=== PATIENT | male | born 1945 | race Caucasian/White ===

== ENCOUNTER → 2016-04-06 | Outpatient (CLI) | payer MEDICARE ==
--- NOTE | 2016-04-06 10:49 | XR ---
EXAMINATION TYPE: XR chest 2V DATE OF EXAM: 04/06/2016 10:29 AM HISTORY: Abnormal weight loss. REFERENCE: Previous study dated 12/21/2008. FINDINGS: The lungs are clear. Pleural spaces are clear. Heart size is normal. Note is made of rib de formity on the right from no rib fracture. IMPRESSION: NO ACUTE INTRATHORACIC ABNORMALITY.
== END | disposition home or self-care (01) ==
LOC: RADXRMAIN 10:13
PROVIDERS: ATTEND Physician Assistant
DX: R63.4 Abnormal weight loss (principal)
CPT/HCPCS: 71020

== ENCOUNTER → 2016-04-24 | Outpatient (CLI) | payer MEDICARE ==
--- NOTE | 2016-04-24 07:31 | MR ---
EXAMINATION TYPE: MR knee RT wo con DATE OF EXAM: 04/24/2016 6:37 AM COMPARISON: NONE HISTORY: Right knee pain TECHNIQUE: Multiplanar, multisequence imaging of the right knee is performed without IV contrast. FINDINGS: MEDIAL MENISCUS: Anterior and posterior horns are intact without tear. Myxoid degeneration posterior horn medial meniscus. LATERAL MENISCUS: Diminutive anterior horn, posterior horn and body which may reflect prior surgical intervention or a chronic complex tear. CRUCIATE LIGAMENTS: The anterior and posterior cruciate ligaments are intact and unremarkable. COLLATERAL LIGAMENTS: The medial collateral ligament and lateral collateral ligament complex are inta ct and unremarkable. EXTENSOR MECHANISM: Visualized quadriceps and patellar tendons are intact. EFFUSION: Moderate suprapatellar joint effusion. POPLITEAL CYST: Cystic structure is noted adjacent to the femoral insertion of the ACL which measure s 1.8 x 1.0 cm and is felt to reflect a ganglion cyst. No evidence for Rivas's cyst at this time. TRICOMPARTMENT SPACES: Moderate narrowing lateral tibiofemoral joint space as well as patellofemoral joint space with early changes of chondromalacia patella. BONE MARROW SIGNAL: No focal abnormal marrow signal is appreciated. OTHER: No additional significant abnormality is appreciated. IMPRESSION: 1. Prior abdomen discectomy lateral meniscus versus chronic complex tear. 2. Changes of osteoarthritis as discussed. 3. Moderate the suprapatellar joint effusion. 4. Ganglion cyst adjacent to the femoral ACL insertion.
== END ==
LOC: RADMRIMAIN 05:57
PROVIDERS: ATTEND Orthopaedic Surgery
DX: M17.11 Unilateral primary osteoarthritis, right knee (principal); M25.461 Effusion, right knee; M67.461 Ganglion, right knee

== ENCOUNTER 2016-06-04 06:12 | Day surgery (SDC) | payer MEDICARE ==
[2016-06-03 09:32] VITALS: BMI 24.0
--- NOTE | 2016-06-03 16:56 | HP ---
DATE OF ADMISSION: 06/04/2016 Abraham Granger is a 70-year-old patient seen with progressive right knee pain. After having options regarding treatment discussed, he elected to proceed with right knee arthroscopy. Consent was obtained. Medical clearance was provided by Dr. Whitten. Past medical history is hypertension. Past surgical history is right knee arthroscopy. DAILY MEDICATIONS: 1. Amlodipine. 2. Lisinopril. 3. Tylenol. ALLERGIES: NONE. SOCIAL HISTORY: Patient denies current tobacco use. PHYSICAL EVALUATION OF RIGHT KNEE: Range of motion is negative 2/3 to 110 degrees. There is a mild effusion. Tenderness along the medial and lateral joint lines. Positive medial Ignacio's. Positive lateral Ignacio's. Ligaments are stable. Crepitus, medial, lateral and patellofemoral compartments with range of motion. Hip rotation is without pain. Distal neurovascular exam is intact. Radiographs of the right knee revealed osteoarthritic changes. MRI of the right knee revealed meniscal tear, osteoarthritis and joint effusion. IMPRESSION: Internal derangement of right knee with meniscal tear. PLAN: Right knee arthroscopy with partial meniscectomy and debridement.
[~2016-06-04 06:12] MED LIST: DEXAMETHASONE SOD PHOSPHATE 10 MG/ML 1 ML VIAL IV ONE; LACTATED RINGERS 1,000 ML IV SCH; ONDANSETRON 4 MG/2 ML VIAL IVP ONE; ceFAZolin 2 GM in SODIUM CHLORIDE 0.9% 100 ML IVPB ONE
[2016-06-04] MEDS ORDERED: LIDOCAINE 1% 20 ML VIAL (10MG/ML) FOR IV START INTRADERMA ONE (06:45)
[2016-06-04] MEDS ORDERED: ePHEDrine 50 MG/ML 1 ML AMP ONE (07:24)
[2016-06-04] MEDS ORDERED: PROPOFOL 10 MG/ML 20 ML VIAL IV ONE (07:24)
[2016-06-04] MEDS ORDERED: MIDAZOLAM 2 MG/2 ML VIAL ONE (07:24)
[2016-06-04] MEDS ORDERED: fentaNYL (PF) 50 MCG/ML 2 ML AMP ONE (07:24)
[2016-06-04] MEDS ORDERED: SUCCINYLCHOLINE CHLORIDE 100 MG/5 ML SYR IV ONE (07:24)
[2016-06-04] MEDS ORDERED: LIDOCAINE 1% INJ 10MG/ML (20 ML MDV) ONE (07:24)
[2016-06-04] MEDS ORDERED: BUPIVACAIN-EPI 0.25%-1:200,000 30 ML VIAL INTRAARTIC ONE ×2 (07:33→08:11)
[2016-06-04 08:21] VITALS: RESP 16; TEMP 97.2
--- NOTE | 2016-06-04 08:25 | P.OP ---
Date of Procedure: 06/04/16 Preoperative Diagnosis: Internal derangement right knee Postoperative Diagnosis: 1. Tear medial and lateral meniscus right knee 2. 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 Reactive synovitis medial, lateral and suprapatellar compartments right knee 4. 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 Arthroscopic partial medial and lateral meniscectomy right knee 2. Arthroscopic chondroplasty patella right knee 3. Arthroscopic partial synovectomy medial, lateral and suprapatellar compartments right knee Anesthesia: LANCEA, local Surgeon: Tip Ulrich Estimated Blood Loss (ml): 10 Pathology: none sent Condition: stable Disposition: PACU Indications for Procedure: 70-year-old patient seen with progressive right knee pain. After having treatment options discussed, he elected to proceed with right knee arthroscopy. Operative Findings: See description of procedure Description of Procedure: Patient was taken to the operative suite. Patient underwent a general anesthetic by the department of anesthesia. Patient was given preoperative antibiotics. The right lower extremity was placed in a well-padded arthroscopic leg stewart. The right leg was prepped and draped in the normal sterile orthopedic fashion. A lateral parapatellar and suprapatellar incision was made. Trochars were inserted. Arthroscopy was initiated. Suprapatellar pouch revealed thick reactive synovitis. The patellofemoral joint appeared to articulate congruently. There was grade 2/3 chondromalacia with some osteochondral tears present. The scope was guided into the medial gutter. No loose bodies or plica were identified. The scope was then guided into the medial compartment. A medial parapatellar incision was made. Trocar inserted followed by probe. There was a radial tear involving the posterior horn of the medial meniscus. There were grade 1 chondromalacia changes of the femoral condyle and grade 1-2 chondromalacia changes of the tibial plateau. Thick reactive synovitis anteriorly. Partial medial meniscectomy was performed down to stable tissue. I performed a partial synovectomy. The residual meniscus was probed and found to be stable. Scope and probe were then guided into the intercondylar notch. Cruciates were identified, probed and found to be stable. The scope and probe were then guided into lateral compartment. There was a complex tear involving the anterior mid body and posterior horns of the lateral meniscus. There was reactive synovitis anteriorly. There was an area of grade 4 chondromalacia lateral femoral condyle and tibial plateau with having exposed bone and [id number] contact. A partial lateral meniscectomy was performed down to stable tissue. I performed a partial synovectomy. The scope was in guided back into the suprapatellar compartment. A motorize shaver was introduced into the suprapatellar compartment. I debrided some piecemeal fragments of meniscus. I performed a chondroplasty the patella. I performed a partial synovectomy. The shaver was removed. I took one more look around the entire knee, no residual debris. Instruments were now removed from the joint. The joint was infiltrated with .25% Marcaine. Steri-Strips were applied to the portal sites. Sterile dressings were applied. The patient was placed into a AYAN hose. No tourniquet was utilized. The patient was awakened, transferred to a bed and taken to recovery stable satisfactory condition.
[2016-06-04] MEDS: HYDROmorphone 1 MG/ML 1 ML SYRINGE IVP PRN ×2 (08:28→08:36)
[2016-06-04 09:39] VITALS: BP 123/70; PULSE 71
== END 2016-06-04 10:11 | disposition home or self-care (01) ==
LOC: OR 06:12
PROVIDERS: ATTEND Orthopaedic Surgery
DX: S83.281A Other tear of lateral meniscus, current injury, right knee, initial encounter (principal); S83.241A Other tear of medial meniscus, current injury, right knee, initial encounter; M65.9 Synovitis and tenosynovitis, unspecified; M22.41 Chondromalacia patellae, right knee; N40.0 Benign prostatic hyperplasia without lower urinary tract symptoms; Z79.82 Long term (current) use of aspirin; I10 Essential (primary) hypertension; Z79.899 Other long term (current) drug therapy; X58.XXXA Exposure to other specified factors, initial encounter
CPT/HCPCS: 29880; J2250; J1100; J0690; J2405; J2001; J3010; J1170; J0330; J2704

== ENCOUNTER 2016-09-23 05:46 | Emergency (ER) | payer MEDICARE ==
--- NOTE | 2016-09-23 07:26 | ED ---
General Adult HPI - General Chief complaint: Fall Stated complaint: hip pain/injury Time Seen by Provider: 09/23/16 07:00 Source: patient, RN notes reviewed Mode of arrival: wheelchair Limitations: no limitations - History of Present Illness Initial comments: This is a 70-year-old male who presents emergency Department complaining of right hip and left sided rib pain. Patient states his friend fell off a ladder on top of him. Patient states initially he felt okay but this morning he woke up and he was having right hip and left rib pain. Patient denies any headache though he did state he bumped his head a little but he does not have a headache he has no numbness or weakness. Patient denies any neck pain. Patient denies any anterior chest pain or difficulty breathing or shortness of breath. Patient denies any mid back pain or lower back pain. Patient is able to move his upper shoulders with full range motion as well as his lower extremity but it does elicit some right hip pain. Patient denies any sites of bleeding. Patient denies ever losing consciousness. - Related Data Home Medications Medication Instructions Recorded Confirmed Glucosam/Juanpablo-Msm1/C/Asher/Bosw 1 tab PO DAILY 06/03/16 09/23/16 [Glucosamine-Chondroitin Tablet] Lisinopril [Zestril] 10 mg PO QAM 06/03/16 09/23/16 Multivitamin [Men's Multi-Vitamin] 1 tab PO DAILY 06/03/16 09/23/16 Tamsulosin HCl [Flomax] 0.8 mg PO HS 06/03/16 09/23/16 amLODIPine BESYLATE [Norvasc] 5 mg PO QAM 06/03/16 09/23/16 Folic Acid 1 mg PO DAILY 09/23/16 09/23/16 Methotrexate Sodium [Methotrexate] 12.5 mg PO MO 09/23/16 09/23/16 Allergies Allergy/AdvReac Type Severity Reaction Status Date / Time No Known Allergies Allergy Verified 09/23/16 07:39 Review of Systems ROS Statement: Those systems with pertinent positive or pertinent negative responses have been documented in the HPI. ROS Other: All systems not noted in ROS Statement are negative. Past Medical History Past Medical History: Hypertension History of Any Multi-Drug Resistant Organisms: None Reported Past Surgical History: Orthopedic Surgery, Tonsillectomy Additional Past Surgical History / Comment(s): rt knee procedure Past Anesthesia/Blood Transfusion Reactions: No Reported Reaction Past Psychological History: No Psychological Hx Reported Smoking Status: Former smoker Past Alcohol Use History: None Reported Past Drug Use History: None Reported - Past Family History Father Family Medical History: CVA/TIA, Diabetes Mellitus Mother Family Medical History: No Reported History General Exam - General Exam Comments Initial Comments: GENERAL: Patient is well-developed and well-nourished. Patient is nontoxic and well- hydrated and is in mild distress. ENT: Neck is soft and supple. No significant lymphadenopathy is noted. Oropharynx is clear. Moist mucous membranes. Neck has full range of motion without eliciting any pain. EYES: The sclera were anicteric and conjunctiva were pink and moist. Extraocular movements were intact and pupils were equal round and reactive to light. Eyelids were unremarkable. PULMONARY: Unlabored respirations. Good breath sounds bilaterally. No audible rales rhonchi or wheezing was noted. CARDIOVASCULAR: There is a regular rate and rhythm without any murmurs gallops or rubs. Patient 's left ribs were mildly tender to palpation ABDOMEN: Soft and nontender with normal bowel sounds. No palpable organomegaly was noted. There is no palpable pulsatile mass. SKIN: Skin is clear with no lesions or rashes and otherwise unremarkable. NEUROLOGIC: Patient is alert and oriented x3. Cranial nerves II through XII are grossly intact. Motor and sensory are also intact. Normal speech, volume and content. Symmetrical smile. MUSCULOSKELETAL: Patient has some tenderness to palpation in the right lateral hip. Patient does have full range of motion but it does elicit pain. LYMPHATICS: No significant lymphadenopathy is noted PSYCHIATRIC: Normal psychiatric evaluation. Normal interpersonal interactions appears functionally intact in deals appropriately with others. No signs of depression. No signs of anxiety. Limitations: no limitations Course Vital Signs 09/23/16 09/23/16 05:55 07:16 Temperature 97.7 F Pulse Rate 84 78 Respiratory 18 16 Rate Blood Pressure 116/72 122/78 O2 Sat by Pulse 96 96 Oximetry Disposition Clinical Impression: Fall, Rib contusion, Contusion, hip Disposition: HOME SELF-CARE Condition: Good Instructions: Fall Prevention for Older Adults (ED), Contusion in Adults (ED) Referrals: Camilo Whitten MD [Primary Care Provider] - 1-2 days Time of Disposition: 08:47
--- NOTE | 2016-09-23 07:30 | XR ---
EXAM: XR Right Hip With Pelvis When Performed, 2 or 3 Views. CLINICAL HISTORY: Reason: Pain TECHNIQUE: Two or three views of the right hip, with pelvis when performed. COMPARISON: No relevant prior studies available. FINDINGS: Bones: Unremarkable. No acute fracture. Joints: Unremarkable. No dislocation. Soft tissues: Unremarkable. IMPRESSION: Normal right hip.
--- NOTE | 2016-09-23 07:33 | XR ---
EXAMINATION TYPE: XR ribs LT w pa chest xray DATE OF EXAM: 09/23/2016 COMPARISON: NONE HISTORY: Chest pain. TECHNIQUE: Frontal chest radiograph and multiple views of the left ribs were obtained. FINDINGS: There is no evidence for focal consolidation, pleural effusion, or pneumothorax. No displac ed rib fracture is seen. Osseous structures appear intact. Cardia mediastinal silhouette is within no rmal limits. Osseous structures are intact. Mild degenerative changes of the acromioclavicular joints are noted. IMPRESSION: 1. No acute cardiopulmonary process. 2. No displaced rib fracture.
--- NOTE | 2016-09-23 07:55 | XR ---
EXAMINATION TYPE: XR pelvis AP view DATE OF EXAM: 09/23/2016 COMPARISON: NONE HISTORY: Patient was injured yesterday when a ladder fell on him. TECHNIQUE: Single AP view of the pelvis was obtained. FINDINGS: Degenerative changes are appreciated of the lumbosacral spine at L5-S1 as well as the sacro iliac joints. There is no evidence of fracture or dislocation. There is a normal bowel gas pattern is visualized. No abnormal calcifications are seen within the pelvis. IMPRESSION: No evidence of fracture or dislocation. Degenerative changes of the lumbosacral junction and SI joints.
[2016-09-23 08:56] VITALS: BP 108/60; PULSE 75; RESP 18; TEMP 97.5
== END 2016-09-23 08:54 | disposition home or self-care (01) ==
LOC: EC 05:46
DX: S70.01XA Contusion of right hip, initial encounter (principal); S20.212A Contusion of left front wall of thorax, initial encounter; I10 Essential (primary) hypertension; Z87.891 Personal history of nicotine dependence; Z79.899 Other long term (current) drug therapy; W50.0XXA Accidental hit or strike by another person, initial encounter
CPT/HCPCS: 72170; 73502; 99283

== ENCOUNTER 2018-04-25 03:12 | Emergency (ER) | payer MEDICARE ==
[2018-04-25 04:15] LABS: RBC,Urine >182 /hpf (0-5); WBC,Urine >182 /hpf (0-5)
[2018-04-25 04:24] LABS: Appearance,Urine Bloody (Clear); Color,Urine Dark Red
[2018-04-25] MEDS ORDERED: CEPHALEXIN 500MG STARTER PACK 4 CAP BTL PO STA (04:38)
--- NOTE | 2018-04-25 04:39 | ED ---
Male Urogenital HPI - General Chief complaint: Urogenital Stated complaint: Hematuria Post Self Cath Time Seen by Provider: 04/25/18 03:23 Source: patient Mode of arrival: ambulatory Limitations: no limitations - History of Present Illness Initial comments: Abraham is a pleasant 72-year-old gentleman who presents the emergency department today for evaluation of hematuria and dysuria. She reports he has had difficulty in urinating for a long period of time he has seen urology in the past. He reports that in late February he began having difficulty urinating. He did make a appointment to see his primary care physician at the [facility] on March 24 however due to weather he was unable to follow up until April 22. Patient reports that on April 22 he was seen by his primary care, his bladder scan revealed greater than 1 L of urine in the bladder and they advised him to begin straight cathing. Patient reports history And approximately every 4 hours. He reports that for the first day after he initiated straight cathing he was producing approximately 1 L every 4 hours however that has decreased. Patient reports that when he catheterized himself around 2 PM Wednesday afternoon he noted some blood clots and had some discomfort. He reports that when he catheterized himself again this morning he had oanh blood and more discomfort which prompted him to come to the ER for evaluation. Patient denies any associated fevers, chills nausea or vomiting. Patient reports he currently does not have establish follow-up with urology though he has been seen by her local urology group the distant past. - Related Data Home Medications Medication Instructions Recorded Confirmed Glucosam/Juanpablo-Msm1/C/Asher/Bosw 1 tab PO DAILY 06/03/16 09/23/16 [Glucosamine-Chondroitin Tablet] Lisinopril [Zestril] 10 mg PO QAM 06/03/16 09/23/16 Multivitamin [Men's Multi-Vitamin] 1 tab PO DAILY 06/03/16 09/23/16 Tamsulosin HCl [Flomax] 0.8 mg PO HS 06/03/16 09/23/16 amLODIPine BESYLATE [Norvasc] 5 mg PO QAM 06/03/16 09/23/16 Folic Acid 1 mg PO DAILY 09/23/16 09/23/16 Methotrexate Sodium [Methotrexate] 12.5 mg PO MO 09/23/16 09/23/16 Previous Rx's Medication Instructions Recorded Phenazopyridine [Pyridium] 200 mg PO TID #9 tablet 04/25/18 Sulfamethoxazole/Trimethoprim 1 each PO BID 10 Days #20 tablet 04/25/18 [Bactrim DS 800-160 mg] Allergies Allergy/AdvReac Type Severity Reaction Status Date / Time No Known Allergies Allergy Verified 04/25/18 03:20 Review of Systems ROS Statement: Those systems with pertinent positive or pertinent negative responses have been documented in the HPI. ROS Other: All systems not noted in ROS Statement are negative. Past Medical History Past Medical History: Hypertension, Prostate Disorder History of Any Multi-Drug Resistant Organisms: None Reported Past Surgical History: Orthopedic Surgery, Tonsillectomy Additional Past Surgical History / Comment(s): rt knee procedure Past Anesthesia/Blood Transfusion Reactions: No Reported Reaction Past Psychological History: No Psychological Hx Reported Smoking Status: Former smoker Past Alcohol Use History: None Reported Past Drug Use History: None Reported - Past Family History Father Family Medical History: CVA/TIA, Diabetes Mellitus Mother Family Medical History: No Reported History General Exam - General Exam Comments Initial Comments: Physical Exam GENERAL: Patient is well-developed and well-nourished. Patient is nontoxic and well- hydrated and is in no distress. HENT: Normocephalic, Atraumatic. EYES: PERRL, EOMI PULMONARY: Unlabored respirations. No audible rales rhonchi or wheezing was noted. CARDIOVASCULAR: There is a regular rate and rhythm without any murmurs gallops or rubs. ABDOMEN: Soft and nontender with normal bowel sounds. SKIN: Skin is clear with no lesions or rashes and otherwise unremarkable. : Deferred NEUROLOGIC: Patient is alert and oriented x3. Moving all extremities spontaneously MUSCULOSKELETAL: Normal extremities with adequate strength and full range of motion. No lower extremity swelling or edema. No calf tenderness. PSYCHIATRIC: Normal psychiatric evaluation. Limitations: no limitations Limitations: no limitations Course Vital Signs 04/25/18 04/25/18 03:17 04:51 Temperature 98 F 97.8 F Pulse Rate 94 89 Respiratory 16 20 Rate Blood Pressure 134/75 131/71 O2 Sat by Pulse 98 97 Oximetry Medical Decision Making - Medical Decision Making The patient was seen and evaluated history was obtained from patient and at bedside next and patient is been straight cathing himself for approximately 3 days and now is experiencing dysuria, urinary frequency and gross hematuria with straight cathing. Patient reports even after catheterization he has bladder spasm and urge urinate Concern for urinary tract infection Urinalysis was obtained it was grossly bloody but there was greater than 182 red and white blood cells identify suspicion for infection therefore we'll treat with by mouth Bactrim. Encouraged the patient to continue straight catheterization as I do not feel it would be tierney to initiate a Martinez catheter in the setting of a urinary tract infection. Patient agreeable with this. Patient will be referred to urology for outpatient follow-up - Lab Data Lab Results 04/25/18 Range/Units 04:00 Urine Color Dark Red Urine Appearance Bloody (Clear) Urine RBC >182 H (0-5) /hpf Urine WBC >182 H (0-5) /hpf Disposition Clinical Impression: Urinary tract infection, Gross hematuria, Self-catheterizes urinary bladder Disposition: HOME SELF-CARE Condition: Stable Instructions (If sedation given, give patient instructions): Urinary Tract Infection in Men (ED), Catheter-associated Urinary Tract Infection (ED) Prescriptions: Phenazopyridine [Pyridium] 200 mg PO TID #9 tablet Sulfamethoxazole/Trimethoprim [Bactrim DS 800-160 mg] 1 each PO BID 10 Days #20 tablet Is patient prescribed a controlled substance at d/c from ED?: No Referrals: [facility],Clinic [Primary Care Provider] - 1-2 days Pnakaj Thorpe MD [STAFF PHYSICIAN] - 1-2 days
[2018-04-25] MEDS ORDERED: SULFAMETH-TMP DS STARTER PACK 2 TAB BTL PO STA (04:41)
[2018-04-25 04:53] VITALS: BP 131/71; PULSE 89; RESP 20; TEMP 97.8
== END 2018-04-25 04:53 | disposition home or self-care (01) ==
LOC: EC 03:12
DX: N39.0 Urinary tract infection, site not specified (principal); I10 Essential (primary) hypertension; Z87.891 Personal history of nicotine dependence; Z79.899 Other long term (current) drug therapy; Y84.6 Urinary catheterization as the cause of abnormal reaction of the patient, or of later complication, without mention of misadventure at the time of the procedure
CPT/HCPCS: 81001; 87086; 99283

== ENCOUNTER 2019-04-27 08:36 | Day surgery (SDC) | payer MEDICARE, OTHER ==
[2019-04-25 15:53] VITALS: BMI 25.7
[~2019-04-27 08:36] MED LIST changes: -DEXAMETHASONE SOD PHOSPHATE 10 MG/ML 1 ML VIAL IV ONE; +LIDOCAINE 1% (10MG/ML) FOR IV START INTRADERMA PRN; -ONDANSETRON 4 MG/2 ML VIAL IVP ONE; -ceFAZolin 2 GM in SODIUM CHLORIDE 0.9% 100 ML IVPB ONE
[2019-04-27 08:53] VITALS: TEMP 97.8
[2019-04-27] MEDS ORDERED: LIDOCAINE 1% INJ 10MG/ML (20 ML MDV) ONE (09:42)
[2019-04-27] MEDS ORDERED: PROPOFOL 10 MG/ML 20 ML VIAL IV ONE (09:42)
--- NOTE | 2019-04-27 10:18 | P.PCN ---
Date of Procedure: 04/27/19 Description of Procedure: BRIEF HISTORY: Patient is a 73-year-old pleasant male scheduled for an elective colonoscopy as a part of personal history of colon polyps. Denies any change in bowel habits, blood per rectum, abdominal pain or family history of colon cancer. PROCEDURE PERFORMED: Colonoscopy with polypectomy. PREOPERATIVE DIAGNOSIS: Personal history of colon polyps, last colonoscopy 3 years ago. ESTIMATED BLOOD LOSS: Minimal. IV sedation per Anesthesia. PROCEDURE: After informed consent was obtained, the patient, was brought into the endoscopy unit. IV sedation was administered by Anesthesia under continuous monitoring. Digital rectal examination was normal. Initially the Olympus CF-190 flexible video colonoscope was then inserted in the rectum, gradually advanced into the cecum without any difficulty. Careful examination was performed as the scope was gradually being withdrawn. Ileocecal valve and the appendiceal orifice were visualized and appeared normal. Prep was excellent. Mucosa of the cecum, ascending colon, transverse colon, descending colon, sigmoid colon, and rectum appeared normal. Flat 8 mm ascending colon polyp removed with cold snare polypectomy. Flat 4 mm transverse colon polyp removed with cold snare polypectomy. Diminutive 2 mm sigmoid colon polyp removed with cold forcep polypectomy. Multiple small amount diverticula noted throughout the colon and particularly concentrated in the sigmoid. Retroflexion was performed in the rectum and no lesions were seen. The patient tolerated the procedure well. IMPRESSION: 2 flat polyps removed with cold snare polypectomy from the ascending colon and transverse colon. Diminutive sigmoid polyp removed with cold forcep polypectomy. Moderate pandiverticulosis. RECOMMENDATIONS: Findings of this examination were discussed with the patient the son. Okay to resume diet. Okay to resume medications. Await pathology from polypectomies. Would recommend repeat colonoscopy in 5 years for history of colon polyps if patient is medically stable.
[2019-04-27 10:31] VITALS: BP 125/81; PULSE 66; RESP 16
== END 2019-04-27 10:44 | disposition home or self-care (01) ==
LOC: ORWHC2ENDO 08:36
PROVIDERS: ATTEND Internal Medicine
DX: Z79.899 Other long term (current) drug therapy (principal); Z12.11 Encounter for screening for malignant neoplasm of colon; D12.2 Benign neoplasm of ascending colon; K63.5 Polyp of colon; Z86.010 Personal history of colon polyps; K57.30 Diverticulosis of large intestine without perforation or abscess without bleeding; I10 Essential (primary) hypertension; Z87.891 Personal history of nicotine dependence; Z97.2 Presence of dental prosthetic device (complete) (partial)
CPT/HCPCS: 88305; 45380; 45385; J2001; J2704

== ENCOUNTER → 2021-03-21 | Outpatient (CLI) | payer MEDICARE ==
--- NOTE | 2021-03-21 12:26 | CT ---
EXAMINATION TYPE: CT pelvis w con DATE OF EXAM: 03/21/2021 COMPARISON: None HISTORY: 75-year-old male C6 1, prostate CA TECHNIQUE: Contiguous axial scanning of the pelvis following administration of 100 ml Isovue 300 IV c ontrast. Delayed images through the bladder and coronal/sagittal reconstructions performed. CT DLP: 843 mGycm Automated exposure control for dose reduction was used. FINDINGS: No dilated small bowel, free fluid, or free air. Scattered mild to moderate stool. There is left-sided colonic diverticulosis, greatest in the sigmoid colon but no oanh colonic inflam matory change seen. Normal appendix. Mild atherosclerotic calcifications infrarenal abdominal aorta. There is a 1.2 cm upper left internal iliac chain lymph node which is nonspecific, axial image 39. Th is should be reassessed at follow-up. Suspect an additional 1 cm lymph node lower left internal iliac chain, axial image 48. Otherwise, no retroperitoneal lymphadenopathy is seen. There is distorted soft tissue within the prostate bed with multiple surgical clips. This is irregula r extension to the base of the bladder eccentrically towards the left. There is abnormal retraction a nd distortion of the posterior left bladder base here. Abnormal soft tissue measures approximately 5. 5 x 4.1 cm on axial image 57. Portion of the prostate gland lower down and measures 3.8 segment is wi de. Numerous pelvic phleboliths. There is mild bilateral hydronephrosis and mild bilateral hydroureter and marked bladder distention. Trabeculated appearance to the bladder wall. No excreted contrast seen within either ureter on the 4 minute delayed images. Bones: Mild degenerative change at the hips. Mild degenerative changes bilateral SI joints. Moderate degenerative disc disease L5-S1. Facet arthropathy lower lumbar spine. IMPRESSION: 1. DISTORTED SOFT TISSUE MEASURING 5.5 X 4.1 CM ALONG THE SUPERIOR ASPECT OF THE PROSTATE GLAND WITH MULTIPLE SURGICAL CLIPS. THERE IS IRREGULAR EXTENSION TO THE BASE OF THE BLADDER, ASYMMETRICALLY TOWA RDS THE LEFT. ABNORMAL RETRACTION AND DISTORTION OF THE LEFT POSTERIOR BLADDER WALL HERE. CORRELATE W ITH PSA VALUES FOR LOCAL RECURRENCE AND BLADDER WALL INVASION. NOTE THAT NO PRIORS ARE AVAILABLE FOR COMPARISON PURPOSES. CORRELATE WITH PSA VALUES. 2. A COUPLE PROMINENT LYMPH NODES ON THE LEFT ALONG THE INTERNAL ILIAC CHAIN MEASURING 1.2 AND 1.0 CM . THESE ARE NONSPECIFIC. METASTATIC NODES NOT EXCLUDED AT THIS TIME. 3. MILD BILATERAL HYDRONEPHROSIS. NO EXCRETED CONTRAST IS SEEN ON THE 4 MINUTE DELAYED IMAGES. THIS C OULD BE SECONDARY TO BLADDER OUTLET OBSTRUCTION GIVEN THE DEGREE OF BLADDER DISTENTION. SOFT TISSUE O BSTRUCTING AT THE UVJ PARTICULARLY ON THE LEFT IS DIFFICULT TO EXCLUDE. 4. LEFT SIDED COLONIC DIVERTICULOSIS, GREATEST IN THE SIGMOID COLON.
--- NOTE | 2021-03-21 13:44 | NM ---
EXAMINATION TYPE: NM bone scan whole body DATE OF EXAM: 03/21/2021 COMPARISON: NONE HISTORY: Prostate cancer Delayed whole-body scanning was performed following the injection of 22.0 mCi Tc 99m MDP. Images wer e acquired 4.5 hours post injection. FINDINGS: There is focal uptake at the first metacarpophalangeal joint spaces bilaterally. Some index finger me tacarpal phalangeal joint space uptake is present on the left. There is focal uptake at the right lillian rnoclavicular junction. Some mild uptake is about the right knee. Findings are nonspecific but can be related to degenerative changes. Suspicious focal uptake to suggest metastatic disease is not evident. IMPRESSION: 1. No suspicious uptake to suggest metastatic disease. 2. Mild scattered diffuse uptake appears more compatible with degenerative changes discussed above.
== END | disposition home or self-care (01) ==
LOC: RADCTMAIN 08:01
PROVIDERS: ATTEND Urology
DX: C61 Malignant neoplasm of prostate (principal); N13.30 Unspecified hydronephrosis; K57.30 Diverticulosis of large intestine without perforation or abscess without bleeding
CPT/HCPCS: 82565; 84520; 72193; 36415; 78306; A9503; Q9967

== ENCOUNTER → 2021-04-04 | Outpatient (CLI) | payer MEDICARE | END | disposition home or self-care (01) | LOC: LABWHC1 13:56 | PROVIDERS: ATTEND Radiology Radiation Oncology | DX: C61 Malignant neoplasm of prostate (principal) | CPT/HCPCS: 36415; 84153 ==

== ENCOUNTER → 2021-06-05 | Outpatient (CLI) | payer MEDICARE ==
[2021-06-05 14:29] LABS: Basophils # (A) 0.03 X 10*3/uL (0.00-0.10); Basophils % (A) 0.3 %; Eosinophils # (A) 0.21 X 10*3/uL (0.04-0.35); Eosinophils % (A) 2.3 %; HCT 43.9 % (39.6-50.0); HGB 13.8 g/dL (13.0-17.0); Immature Grans, Automated 0.4 %; Lymphocytes # (A) 1.36 X 10*3/uL (0.90-5.00); Lymphocytes % (A) 14.8 %; MCH 30.3 pg (27.0-32.0); MCHC 31.4 g/dL (32.0-37.0); MCV 96.3 fL (80.0-97.0); Mean Platelet Volume 9.5 fL (9.5-12.2); Monocytes # (A) 0.96 X 10*3/uL (0.20-1.00); Monocytes % (A) 10.5 %; NRBC Per 100 WBC 0 /100 WBCS (0.0-0.0); Neutrophils # (A) 6.58 X 10*3/uL (1.80-7.70); Neutrophils % (A) 71.7 %; Platelet Count 202 X 10*3/uL (140-440); RBC 4.56 X 10*6/uL (4.40-5.60); RDW 13.3 % (11.5-14.5); WBC 9.18 X 10*3/uL (4.50-10.00)
[2021-06-05 14:36] LABS: BUN/Creat Ratio 21.8 Ratio (12.00-20.00); Blood Urea Nitrogen 21.8 mg/dL (9.0-27.0); Calcium 9.4 mg/dL (8.7-10.3); Non-African American GFR(CKD) 73.3 (60.0-200.0); Potassium 4.4 mmol/L (3.5-5.5)
== END | disposition home or self-care (01) ==
LOC: LABPAT 10:01
PROVIDERS: ATTEND Urology
DX: Z01.812 Encounter for preprocedural laboratory examination (principal); C61 Malignant neoplasm of prostate
CPT/HCPCS: 36415; 80048; 85025

== ENCOUNTER 2021-06-12 08:10 | Day surgery (SDC) | payer MEDICARE ==
--- NOTE | 2021-06-09 16:40 | P.GSHP ---
History of Present Illness H&P Date: 06/09/21 Chief Complaint: Prostate cancer The patient is a 75-year-old white male with recently diagnosed prostate cancer. He has chronic urinary retention. His PSA level is 7.10. ZACH revealed the prostate to be smooth but firm. The prostate volume was 17 mL. 10 of 12 biopsies showed evidence of adenocarcinoma, Ismael score 7-8. He has elected to be treated with IMRT and androgen deprivation therapy (ADT). ADT was started 05/23/2021. He now comes for SpaceOAR implant to reduce the risk of rectal toxicity. - Genitourinary (Male) Genitourinary: Reports as per HPI Past Medical History Past Medical History: Hyperlipidemia, Hypertension, Prostate Disorder Additional Past Medical History / Comment(s): borderline high cholesterol, History of Any Multi-Drug Resistant Organisms: None Reported Past Surgical History: Orthopedic Surgery, Prostate Surgery, Tonsillectomy Additional Past Surgical History / Comment(s): rt knee arthroscopy Past Anesthesia/Blood Transfusion Reactions: No Reported Reaction Past Psychological History: No Psychological Hx Reported Past Alcohol Use History: None Reported Additional Past Alcohol Use History / Comment(s): quit smoking ,smoked approx 20yrs, 2ppd Past Drug Use History: None Reported - Past Family History Father Family Medical History: Diabetes Mellitus Mother Family Medical History: No Reported History Medications and Allergies Home Medications Medication Instructions Recorded Confirmed Type Multivitamin [Men's Multi-Vitamin] 1 tab PO DAILY 06/03/16 04/27/19 History Tamsulosin HCl [Flomax] 0.8 mg PO PC-BRKFST 06/03/16 04/27/19 History amLODIPine BESYLATE [Norvasc] 5 mg PO QAM 06/03/16 04/27/19 History lisinopriL [Zestril] 10 mg PO QAM 06/03/16 04/27/19 History Finasteride [Proscar] 5 mg PO DAILY 04/25/19 04/27/19 History Allergies Allergy/AdvReac Type Severity Reaction Status Date / Time No Known Allergies Allergy Verified 04/27/19 08:52 Surgical - Exam - General well developed, well nourished, no distress - Respiratory normal respiratory effort - Abdomen Abdomen: soft, non tender, no guarding, no rigid, no rebound - Genitourinary normal penis with no external lesions, testicles non-tender - Rectum Rectum: normal sphincter tone, no masses, other (Prostate minimally enlarged, firm, smooth) - Psychiatric oriented to time, oriented to person, oriented to place, speech is normal, memory intact Assessment and Plan (1) Malignant neoplasm of prostate Status: Acute Code(s): C61 - MALIGNANT NEOPLASM OF PROSTATE SNOMED Code(s): 754340403 Plan: The SpaceOar implant has been reviewed in detail with the patient. He understands that the rationale for this is to create separation between the prostate and rectum, thus reducing the risk of radiation proctitis. The material begins to breakdown 12-13 weeks following implant, and is reabsorbed by the body. Risks include anesthesia, bleeding, infection, and perineal discomfort. He understands that if the rectal wall is perforated the procedure will need to be aborted.
[2021-06-10 16:17] VITALS: BMI 25.0
[2021-06-12] MEDS ORDERED: LACTATED RINGERS 1,000 ML IV SCH (08:53)
[2021-06-12] MEDS ORDERED: ONDANSETRON 4 MG/2 ML VIAL IVP ONE (08:53)
[2021-06-12] MEDS ORDERED: HYDROmorphone 0.5 MG/0.5 ML SYRINGE IVP PRN (08:53)
[2021-06-12] MEDS ORDERED: DEXAMETHASONE SOD PHOSPHATE 4 MG/ML 1 ML VIAL IV ONE (08:53)
[2021-06-12 09:06] VITALS: TEMP 97.4
[2021-06-12] MEDS ORDERED: PROPOFOL 10 MG/ML 20 ML VIAL IV ONE (10:12)
[2021-06-12] MEDS ORDERED: fentaNYL (PF) 50 MCG/ML 2 ML AMP ONE (10:12)
[2021-06-12] MEDS ORDERED: KETOROLAC 15 MG/ML 1 ML VIAL ONE (10:12)
[2021-06-12] MEDS ORDERED: MIDAZOLAM 2 MG/2 ML VIAL ONE (10:12)
[2021-06-12] MEDS ORDERED: KETAMINE 10 MG/ML 20 ML VIAL ONE (10:12)
[2021-06-12] MEDS ORDERED: LIDOCAINE 2% INJ 20 MG/ML SQ ONE (10:27)
--- NOTE | 2021-06-12 10:59 | P.OP ---
Date of Procedure: 06/12/21 Preoperative Diagnosis: Adenocarcinoma of the Prostate Postoperative Diagnosis: Same Procedure(s) Performed: SpaceOAR Implant Anesthesia: MAC Surgeon: Emery Mar Estimated Blood Loss (ml): 10 IV fluids (ml): 700 Pathology: none sent Condition: stable Disposition: PACU Indications for Procedure: The patient is a 75-year-old white male with recently diagnosed prostate cancer. He has chronic urinary retention. His PSA level is 7.10. ZACH revealed the prostate to be smooth but firm. The prostate volume was 17 mL. 10 of 12 biopsies showed evidence of adenocarcinoma, Ismael score 7-8. He has elected to be treated with IMRT and androgen deprivation therapy (ADT). ADT was started 05/23/2021. He now comes for SpaceOAR implant to reduce the risk of rectal toxicity. Operative Findings: Excellent separation created between prostate and rectum. Description of Procedure: The patient was taken to the operating room and placed in the dorsolithotomy position, with his legs supported in Nik stirrups. The external genitalia was prepped and draped sterilely. The Bruel and Kjaer transrectal ultrasound probe was placed intrarectally. The prostate was imaged. The probe was then placed within the stabilizing stand. A spinal needle was advanced under ultrasonic guidance to the level of the urogenital diaphragm, and lidocaine was used to infiltrate the tissues as the needle was withdrawn. Next, the SpaceOAR needle was passed through the midline of the perineum, 1-2 cm anterior to the anal opening. The needle was slowly advanced under ultrasonic guidance until the needle tip was located within the fat plane between the prostate and rectum, at the level of the mid prostate gland. The needle was confirmed to be midline on the axial imaging. A small amount of normal saline was injected for hydrodissection. Next, the SpaceOAR components were mixed and loaded into the Y connector per protocol. The Y connector was then connected to the needle, and the components were injected slowly over a course of approximately 12 seconds. A total of 10 ml was injected. Significant distance was created between the prostate and rectum, as desired. It should be noted that at no point was there any concern of rectal perforation. The needle was withdrawn, as well as the transrectal ultrasound probe, and the procedure was terminated. The patient tolerated the procedure well and was taken to the recovery room in stable condition.
[2021-06-12 11:07] VITALS: BP 120/77; PULSE 61; RESP 18
== END 2021-06-12 11:25 | disposition home or self-care (01) ==
LOC: OR 08:10
PROVIDERS: ATTEND Urology
DX: C61 Malignant neoplasm of prostate (principal); R33.9 Retention of urine, unspecified; I10 Essential (primary) hypertension; E78.5 Hyperlipidemia, unspecified; Z87.891 Personal history of nicotine dependence; Z79.899 Other long term (current) drug therapy; Z98.890 Other specified postprocedural states; Z90.89 Acquired absence of other organs; Z83.3 Family history of diabetes mellitus
CPT/HCPCS: 55874; C1889; J2001; J2250; J1100; J0690; J2405; J3010; J1885; J2704

== ENCOUNTER → 2021-07-05 | Outpatient (CLI) | payer MEDICARE ==
--- NOTE | 2021-07-05 16:37 | MR ---
EXAMINATION TYPE: MR knee LT wo con DATE OF EXAM: 07/05/2021 COMPARISON: None HISTORY: Pain in left knee Multiplanar multiecho imaging of the left knee without contrast. There is a moderate knee joint effusion. The anterior and posterior cruciate ligaments show no comple te tear. There is increased signal and thickening in the posterior cruciate ligament consistent with intrasubstance extensive tear. Anterior cruciate ligament is intact. There is increased signal within the posterior horn of the lateral meniscus. There is similar change in the posterior horn of the med ial meniscus. No extension seen to the articular surface. The collateral ligaments are intact. There is minor spurring of the femoral and tibial condyles. No fracture seen. No evidence of focal bone dariel truction. Patella is intact. IMPRESSION: Moderate knee joint effusion. Intrasubstance tear of the posterior cruciate ligament. Degenerative signal changes in the posterior horn of the medial and lateral meniscus without a comple te tear.
== END | disposition home or self-care (01) ==
LOC: RADMRIMAIN 14:22
PROVIDERS: ATTEND Orthopaedic Surgery
DX: S83.522A Sprain of posterior cruciate ligament of left knee, initial encounter (principal); M25.462 Effusion, left knee; X58.XXXA Exposure to other specified factors, initial encounter

== ENCOUNTER → 2021-08-14 | Outpatient (CLI) | payer MEDICARE ==
[2021-08-14 14:05] LABS: Basophils # (A) 0.03 X 10*3/uL (0.00-0.10); Basophils % (A) 0.5 %; Eosinophils # (A) 0.29 X 10*3/uL (0.04-0.35); Eosinophils % (A) 5.2 %; HCT 38.3 % (39.6-50.0); HGB 12.2 g/dL (13.0-17.0); Immature Grans, Automated 0.7 %; Lymphocytes # (A) 0.48 X 10*3/uL (0.90-5.00); Lymphocytes % (A) 8.7 %; MCH 30.3 pg (27.0-32.0); MCHC 31.9 g/dL (32.0-37.0); MCV 95.3 fL (80.0-97.0); Mean Platelet Volume 9.4 fL (9.5-12.2); Monocytes # (A) 0.67 X 10*3/uL (0.20-1.00); Monocytes % (A) 12.1 %; NRBC Per 100 WBC 0 /100 WBCS (0.0-0.0); Neutrophils # (A) 4.03 X 10*3/uL (1.80-7.70); Neutrophils % (A) 72.8 %; Platelet Count 185 X 10*3/uL (140-440); RBC 4.02 X 10*6/uL (4.40-5.60); RDW 14.8 % (11.5-14.5); WBC 5.54 X 10*3/uL (4.50-10.00)
[2021-08-14 14:31] LABS: Anion Gap 12.4 mmol/L (10.00-18.00); Carbon Dioxide 24.8 mmol/L (20.0-27.5)
== END | disposition home or self-care (01) ==
LOC: LABPAT 08:16
PROVIDERS: ATTEND Orthopaedic Surgery
DX: Z01.812 Encounter for preprocedural laboratory examination (principal); M23.92 Unspecified internal derangement of left knee
CPT/HCPCS: 36415; 80051; 85025; 93005

== ENCOUNTER → 2021-08-14 | Outpatient (CLI) | payer MEDICARE | END | disposition home or self-care (01) | LOC: LABWHC1 08:18 | PROVIDERS: ATTEND Radiology Radiation Oncology | DX: C61 Malignant neoplasm of prostate (principal); N52.9 Male erectile dysfunction, unspecified | CPT/HCPCS: 36415; 84153 ==

== ENCOUNTER 2021-08-28 11:08 | Day surgery (SDC) | payer MEDICARE ==
--- NOTE | 2021-08-27 14:35 | HP ---
HISTORY AND PHYSICAL REASON FOR ADMISSION: Surgery 08/28/2021 HISTORY OF PRESENT ILLNESS: Abraham Harper is a 75-year-old patient seen with progressive left knee pain. We discussed options for treatment. He elected to proceed with left knee arthroscopy. Consent is obtained. PAST MEDICAL HISTORY: Hypertension, hyperlipidemia. PAST SURGICAL HISTORY: Right knee arthroscopy. DAILY MEDICATIONS: Aleve, Amlodipine, lisinopril and Tylenol. ALLERGIES: None. SOCIAL HISTORY: He denies tobacco use. PHYSICAL EVALUATION OF THE LEFT KNEE: Range of motion 0-130. He has a moderate effusion. Tenderness along the medial joint line. Positive medial Ignacio's. Ligaments stable. Hip rotation without pain. Distal neurovascular exam intact. RADIOGRAPHS: Radiographs of the left knee revealed mild medial moderate patellofemoral compartment osteoarthritis. MRI left knee revealed abnormal signal of the medial and lateral meniscus and partial posterior cruciate ligament tear. IMPRESSION: 1. Internal derangement of left knee with medial and lateral meniscal tears, left knee. 2. Left knee partial posterior cruciate ligament tear. 3. Hypertension. PLAN: Left knee arthroscopy with partial medial/lateral meniscectomy and debridement. Surgery 08/28/2021. MMODL / IJN: [id number] /
[~2021-08-28 11:08] MED LIST changes: +DEXAMETHASONE SOD PHOSPHATE 4 MG/ML 1 ML VIAL IV ONE; +HYDROmorphone 0.5 MG/0.5 ML SYRINGE IVP PRN; -LIDOCAINE 1% (10MG/ML) FOR IV START INTRADERMA PRN; +ONDANSETRON 4 MG/2 ML VIAL IVP ONE
[2021-08-28 11:41] VITALS: RESP 16
[2021-08-28] MEDS ORDERED: PHENYLEPHRINE-0.9% NACL SYG 1,000 MCG/10 ML SYRINGE ONE (13:13)
[2021-08-28] MEDS ORDERED: PROPOFOL 10 MG/ML 20 ML VIAL IV ONE (13:13)
[2021-08-28] MEDS ORDERED: ePHEDrine 50 MG/ML 1 ML VIAL ONE (13:13)
[2021-08-28] MEDS ORDERED: LIDOCAINE 2% INJ 20 MG/ML (2 ML VIAL) ONE (13:13)
[2021-08-28] MEDS ORDERED: MIDAZOLAM 2 MG/2 ML VIAL ONE (13:13)
[2021-08-28] MEDS ORDERED: fentaNYL (PF) 50 MCG/ML 2 ML AMP ONE (13:13)
[2021-08-28] MEDS ORDERED: BUPIVACAIN-EPI 0.25%-1:200,000 30 ML VIAL INTRAARTIC ONE (13:14)
--- NOTE | 2021-08-28 14:04 | P.OP ---
Date of Procedure: 08/28/21 Preoperative Diagnosis: Internal derangement left knee Postoperative Diagnosis: 1. Tear medial and lateral meniscus left knee 2. Reactive synovitis medial, lateral and suprapatellar compartments left knee 3. 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 Arthroscopic partial medial and lateral meniscectomy left knee 2. Arthroscopic partial synovectomy medial, lateral and suprapatellar compartments left knee Anesthesia: LANCEA, local Surgeon: Tip Ulrich Estimated Blood Loss (ml): 7 Pathology: none sent Condition: stable Disposition: PACU Indications for Procedure: 75-year-old patient seen with progressive left knee pain. After treatment options were discussed, he elected to proceed with arthroscopy. Operative Findings: See description of procedure Description of Procedure: Patient was taken to the operative suite. Patient underwent a general anesthetic by the department of anesthesia. Patient was given preoperative antibiotics. The left lower extremity was placed in a well-padded arthroscopic leg stewart. The left leg was prepped and draped in the normal sterile orthopedic fashion. A lateral parapatellar and suprapatellar incision was made. Trochars were inserted. Arthroscopy was initiated. Suprapatellar pouch revealed diffuse thick reactive synovitis. The patellofemoral joint appeared to articulate congruently. There was grade 4 chondral malacia of both the femoral sulcus and the patella. There was a large areas of exposed bone on both sides([id number] arthritis). The scope was guided into the medial gutter. No loose bodies or plica were identified. The scope was then guided into the medial compartment. A medial parapatellar incision was made. Trocar inserted followed by probe. There was a tear involving the posterior horn of the medial meniscus. There were grade 1 chondromalacia changes of the medial compartment area there was some thick reactive synovitis anteriorly. I performed a partial medial meniscectomy getting down to stable meniscal tissue. I performed a partial synovectomy decompressing the thick reactive synovitis. The residual meniscus was stable. There was good decompression of the synovitis. Scope and probe were then guided into the intercondylar notch. Cruciates were identified, probed and found to be stable. The scope and probe were then guided into lateral compartment. There was a radial tear anterior horn lateral meniscus. There was thick synovitis anteriorly. There were grade 1 chondromalacia changes of the lateral compartment. I performed a partial lateral meniscectomy. I performed a partial synovectomy. The residual meniscus was stable. There was good decompression of the synovitis. The scope was in guided back into the suprapatellar compartment. I introduced a motorized shaver into the suprapatellar compartment. I debrided some piecemeal fragments of meniscus that I encountered. I performed a partial synovectomy. The shaver was removed. There was good decompression of synovitis. I took one more look around the entire knee, no residual debris. Instruments were now removed from the joint. The joint was infiltrated with .25% Marcaine. Steri-Strips were applied to the portal sites. Sterile dressings were applied. The patient was placed into a AYAN hose. No tourniquet was utilized. The patient was awakened, transferred to a bed and taken to recovery stable satisfactory condition.
[2021-08-28 14:05] VITALS: TEMP 97.1
[2021-08-28 14:58] VITALS: BP 127/78; PULSE 67
== END 2021-08-28 15:44 | disposition home or self-care (01) ==
LOC: OR 11:08
PROVIDERS: ATTEND Orthopaedic Surgery
DX: M23.92 Unspecified internal derangement of left knee (principal); M23.222 Derangement of posterior horn of medial meniscus due to old tear or injury, left knee; M23.242 Derangement of anterior horn of lateral meniscus due to old tear or injury, left knee; M65.9 Synovitis and tenosynovitis, unspecified; M22.42 Chondromalacia patellae, left knee; M17.12 Unilateral primary osteoarthritis, left knee; I10 Essential (primary) hypertension; E78.5 Hyperlipidemia, unspecified; Z79.899 Other long term (current) drug therapy; Z87.891 Personal history of nicotine dependence; Z82.3 Family history of stroke; Z83.3 Family history of diabetes mellitus; Z85.46 Personal history of malignant neoplasm of prostate
CPT/HCPCS: 29880; 29876; J2250; J1100; J0690; J2405; J3010; J2370; J2704; J2001

== ENCOUNTER 2021-10-31 07:44 | Emergency (ER) | payer MEDICARE ==
--- NOTE | 2021-10-31 08:46 | ED ---
General Adult HPI - General Chief complaint: Back Pain/Injury Stated complaint: back pain Time Seen by Provider: 10/31/21 07:57 Source: patient, RN notes reviewed, old records reviewed Mode of arrival: ambulatory Limitations: no limitations - History of Present Illness Initial comments: 76-year-old male history of prostate cancer presenting for evaluation of left flank pain and hematuria. Pain is been present for the past 3 days. Patient does not remember a specific injury. He describes it as left mid back pain radiating to the front. No chest pain. No anterior abdominal pain. No dysuria but he has had hematuria. Patient denies fever or vomiting. Pain is worse with movement. - Related Data Home Medications Medication Instructions Recorded Confirmed Tamsulosin HCl [Flomax] 0.8 mg PO PC-BRKFST 06/03/16 08/28/21 amLODIPine BESYLATE [Norvasc] 5 mg PO QAM 06/03/16 08/28/21 lisinopriL [Zestril] 10 mg PO QAM 06/03/16 08/28/21 Previous Rx's Medication Instructions Recorded HYDROcodone/APAP 5-325MG [[place] 1 tab PO Q6HR PRN #12 tab 08/28/21 5-325] HYDROcodone/APAP 5-325MG [[place] 1 tab PO Q6HR PRN #12 tab 10/31/21 5-325] Allergies Allergy/AdvReac Type Severity Reaction Status Date / Time No Known Allergies Allergy Verified 10/31/21 07:52 Review of Systems ROS Statement: Those systems with pertinent positive or pertinent negative responses have been documented in the HPI. ROS Other: All systems not noted in ROS Statement are negative. Past Medical History Past Medical History: Cancer, Hyperlipidemia, Hypertension, Prostate Disorder Additional Past Medical History / Comment(s): borderline high cholesterol, Prostate CA History of Any Multi-Drug Resistant Organisms: None Reported Past Surgical History: Orthopedic Surgery, Prostate Surgery, Tonsillectomy Additional Past Surgical History / Comment(s): rt knee arthroscopy Past Anesthesia/Blood Transfusion Reactions: No Reported Reaction Past Psychological History: No Psychological Hx Reported Smoking Status: Never smoker Past Alcohol Use History: None Reported Past Drug Use History: None Reported - Past Family History Father Family Medical History: Diabetes Mellitus Mother Family Medical History: No Reported History Son(s) Family Medical History: Cancer General Exam Limitations: no limitations General appearance: alert, in no apparent distress Head exam: Present: atraumatic, normocephalic Eye exam: Present: normal appearance, PERRL ENT exam: Present: normal exam Neck exam: Present: normal inspection. Absent: tenderness, meningismus Respiratory exam: Present: normal lung sounds bilaterally. Absent: respiratory distress, wheezes Cardiovascular Exam: Present: regular rate, normal rhythm GI/Abdominal exam: Present: soft. Absent: distended, tenderness, guarding Extremities exam: Present: normal inspection, normal capillary refill Back exam: Present: CVA tenderness (L), paraspinal tenderness. Absent: v ertebral tenderness Neurological exam: Present: alert, oriented X3, CN II-XII intact, normal gait. Absent: motor sensory deficit Psychiatric exam: Present: normal affect, normal mood Skin exam: Present: warm, dry, intact. Absent: cyanosis, diaphoretic Course Vital Signs 10/31/21 07:49 Temperature 97.7 F Pulse Rate 81 Respiratory 20 Rate Blood Pressure 127/66 O2 Sat by Pulse 98 Oximetry Medical Decision Making - Medical Decision Making 76-year-old male with left flank pain and hematuria, history of prostate cancer. Workup is initiated, urinalysis is negative for both infection and hematuria currently. CT is performed to evaluate both the lumbar spine and kidneys. Shows some chronic changes without acute process to explain the patient's pain, no hydronephrosis, no obstructing kidney stone, no acute bony abnormality. Patient's pain is worse with movement, may be musculoskeletal. We'll trial some pain medication and close outpatient follow-up. There is no alarming features and vital signs are stable currently. - Lab Data Lab Results 10/31/21 Range/Units 09:25 Urine Color Yellow Urine Appearance Clear (Clear) Urine pH 5.0 (5.0-8.0) Ur Specific [place] 1.023 (1.001-1.035) Urine Protein Trace H (Negative) Urine Glucose (UA) Negative (Negative) Urine Ketones Negative (Negative) Urine Blood Negative (Negative) Urine Nitrite Negative (Negative) Urine Bilirubin Negative (Negative) Urine Urobilinogen <2.0 (<2.0) mg/dL Ur Leukocyte Esterase Negative (Negative) Disposition Clinical Impression: Mid back pain Disposition: HOME SELF-CARE Condition: Fair Instructions (If sedation given, give patient instructions): Acute Low Back Pain (ED) Prescriptions: HYDROcodone/APAP 5-325MG [[place] 5-325] 1 tab PO Q6HR PRN #12 tab PRN Reason: Pain Is patient prescribed a controlled substance at d/c from ED?: No Referrals: [facility],Clinic [Primary Care Provider] - 1-2 days Time of Disposition: 10:04
--- NOTE | 2021-10-31 09:13 | CT ---
EXAMINATION TYPE: CT abdomen pelvis wo con DATE OF EXAM: 10/31/2021 COMPARISON: Pelvis 03/21/2021 HISTORY: 76-year-old male Lt flank pain, radiating up to shoulder, hematuria CT DLP: 565 mGycm. Automated exposure control for dose reduction was used. TECHNIQUE: Contiguous axial scanning of the abdomen and pelvis without IV contrast. Coronal and sagit jessica reconstructions performed. FINDINGS: Lack of IV contrast limits assessment of the solid abdominal viscera, lymph nodes, and vascular struc tures. LUNG BASES: Extensive LAD coronary artery calcifications. Heart normal size. Some strandy atelectasis /scarring in the lower lungs without pleural effusion. Tiny hiatal hernia. Multiple potential wall th ickening distal esophagus. Correlate for any symptoms of a mild esophagitis. LIVER/GB: 7 mm hypodense lesion centrally in the liver likely a tiny cyst. No abnormal gallbladder di stention. PANCREAS: No significant abnormality is seen. SPLEEN: No significant abnormality is seen. Tiny anterior splenule. ADRENALS: No significant abnormality is seen. KIDNEYS: A few scattered punctate 2 to 3 mm nonobstructive stones in both kidneys. Suspect small para pelvic cysts on the right measuring up to 1.2 cm. No hydronephrosis on either side no suspicious uret eral calculus. Some perinephric stranding on both sides may be slightly greater on the left compared to the right. BOWEL: Normal appendix. No dilated small bowel, free fluid, or free air. Moderate stool burden. Left sided colonic diverticulosis, greatest in the sigmoid colon. No perisplenic inflammatory change. LYMPH NODES: No mesenteric or retroperitoneal lymphadenopathy. Previously described left internal keara ac chain nodes no longer appreciated. PELVIS: The previously asymmetric soft tissue along the superior aspect of the left prostate gland ap pears to have improved as has the left posterior inferior margin of the bladder. The bladder is colla psed but shows wall thickening, likely posttreatment change. Multiple surgical clips in the prostate bed with soft tissue here measuring 4.1 cm versus 4.2 cm, previously. Numerous pelvic phlebolith. No abnormal fluid collection in the pelvis. BONES: Moderate degenerative disc disease L5-S1. Facet arthropathy lower lumbar spine. IMPRESSION: 1. There are scattered punctate 2 to 3 mm nonobstructive calculi in both kidneys. No hydronephrosis. 2. Mild bilateral perinephric fat stranding though slightly greater on the left. This is nonspecific and could reflect senescent change or chronic kidney disease. Correlate to exclude the possibility o f underlying infection/pyelonephritis. 3. Postsurgical change at the prostate gland. The previous soft tissue on the left distorting the ba se of the bladder seen on 03/21/2021 has improved. The previous left internal iliac chain lymph nodes are also no longer appreciated. 4. Left colonic diverticulosis, greatest in the sigmoid colon. No evidence for acute diverticulitis. 5. Bladder is collapsed but shows circumferential wall thickening. Correlate for cystitis, bladder w all hypertrophy, or posttreatment change.
[2021-10-31] MEDS ORDERED: HYDROcodone/APAP 5-325MG 1 EACH TAB PO STA (09:33)
[2021-10-31 09:53] LABS: Appearance,Urine Clear (Clear); Bilirubin,Urine Negative (Negative); Blood,Urine Negative (Negative); Color,Urine Yellow; Glucose,Urine (UA) Negative (Negative); Ketones,Urine Negative (Negative); Leukocyte Esterase,Urine Negative (Negative); Nitrite,Urine Negative (Negative); Protein,Urine Trace (Negative); Specific Gravity,Urine 1.023 (1.001-1.035); Urobilinogen,Urine <2.0 mg/dL (<2.0)
[2021-10-31 10:19] VITALS: BP 117/69; PULSE 69; RESP 17; TEMP 97.9
== END 2021-10-31 10:19 | disposition home or self-care (01) ==
LOC: EC 07:44
DX: N20.0 Calculus of kidney (principal); I10 Essential (primary) hypertension; Z79.899 Other long term (current) drug therapy
CPT/HCPCS: 74176; 81003; 99284

== ENCOUNTER → 2022-06-23 | Outpatient (CLI) | payer MEDICARE, BC | END | disposition home or self-care (01) | LOC: LABWHC1 08:09 | PROVIDERS: ATTEND Radiology Radiation Oncology | DX: C61 Malignant neoplasm of prostate (principal); N52.9 Male erectile dysfunction, unspecified; Z92.3 Personal history of irradiation | CPT/HCPCS: 36415; 84153; 84403 ==

== ENCOUNTER → 2022-12-23 | Outpatient (CLI) | payer MEDICARE | END | disposition home or self-care (01) | LOC: LABWHC1 07:10 | PROVIDERS: ATTEND Radiology Radiation Oncology | DX: C61 Malignant neoplasm of prostate (principal); N52.9 Male erectile dysfunction, unspecified; Z92.3 Personal history of irradiation | CPT/HCPCS: 36415; 84153 ==

== ENCOUNTER → 2023-06-30 | Outpatient (CLI) | payer MEDICARE | END | disposition home or self-care (01) | LOC: LABWHC1 07:37 | PROVIDERS: ATTEND Radiology Radiation Oncology | DX: C61 Malignant neoplasm of prostate (principal); N52.9 Male erectile dysfunction, unspecified; Z92.3 Personal history of irradiation | CPT/HCPCS: 36415; 84153 ==

== ENCOUNTER → 2023-07-13 | Outpatient (CLI) | payer MEDICARE ==
[2023-07-13 09:57] LABS: African American GFR (CKD) 86 (>60 ml/min/1.73 sqM); Blood Urea Nitrogen 24 mg/dL (9-20); Non-African American GFR(CKD) 75 (>60 ml/min/1.73 sqM)
--- NOTE | 2023-07-15 13:28 | CT ---
EXAMINATION TYPE: CT neck chest w con CT DLP: 828.20 mGycm, Automated exposure control for dose reduction was used. DATE OF EXAM: 07/13/2023 10:20 AM COMPARISON: 10/31/2021. CLINICAL INDICATION:Male, 77 years old with history of C61, Z92.3, N52.9;, Malignant neoplasm of pros arndt, hx irradiation, pt stating numbness in RT arm. TECHNIQUE: Standard enhanced CT of the neck and chest. Axial sections with coronal and sagittal refo rmats were obtained. Contrast used:100 mL of Isovue 300 with IV Contrast, (none if empty) Oral contrast used: (none if empty) FINDINGS: Brain: Visualized portions are grossly unremarkable. Orbits: Unremarkable Sinuses: Grossly unremarkable. Osteoma suspected left frontal ethmoid air cells. Spaces of the neck: Clear and symmetric. Musculoskeletal: No acute osseous pathology. Mild multilevel degeneration changes of the neck for sig nificant neural foraminal stenosis. The spinal canal is patent. Sclerotic focus within the C3 vertebr al body measuring 2 mm and within the left mandible measuring 6 mm. Lymph nodes: Multiple nonenlarged lymph nodes are seen along both anterior chains of the neck. Vascular structures: Visualized major arteries are patent without evidence of aneurysm. The common ca rotid and vertebral arteries are patent. Thoracic Inlet/airway: Airway is patent. The lung apices are clear. Soft tissues/Thyroid: Thyroid and remainder of the soft tissues are unremarkable. Other: none. LUNGS/ PLEURA: The lung parenchyma appears unremarkable. AIRWAY: Patent and unremarkable. HEART: Size within normal limits. MEDIASTINUM: No gross evidence of adenopathy. VASCULATURE: No aortic aneurysm. MUSCULOSKELETAL: No acute osseous abnormalities SOFT TISSUES/LYMPH NODES: Unremarkable. LOWER NECK: No significant findings. UPPER ABDOMEN: No significant findings. IMPRESSION 1. No evidence for mass or lymphadenopathy. 2. Mild degeneration changes of the cervical spine without evidence for significant spinal canal harpal ral foraminal stenosis. 3. Indeterminate sclerotic foci in the C3 vertebral body and left mandible. No other scattered foci definitively visualized. Findings could represent bone island versus metastatic disease felt to be le ss likely. Attention on follow-up imaging. Consider nuclear medicine pet/CT gallium-68 PSMA scan for complete more sensitive evaluation for metastatic prostate adenocarcinoma.
== END | disposition home or self-care (01) ==
LOC: RADCTMAIN 08:57
PROVIDERS: ATTEND Radiology Radiation Oncology
DX: M50.30 Other cervical disc degeneration, unspecified cervical region (principal); C61 Malignant neoplasm of prostate; N52.9 Male erectile dysfunction, unspecified; Z93.2 Ileostomy status; R20.0 Anesthesia of skin
CPT/HCPCS: 82565; 84520; 70491; 71260; 36415; Q9967

== ENCOUNTER → 2023-12-23 | Outpatient (CLI) | payer MEDICARE ==
--- NOTE | 2023-12-23 10:42 | US ---
EXAMINATION TYPE: US kidneys/renal and bladder DATE OF EXAM: 12/23/2023 COMPARISON: CT abdomen and pelvis 10/31/2021 CLINICAL INDICATION: Male, 78 years old with history of R31.0 GROSS HEMATURIA; patient has self petar d for 5 years, h/o prostate CA, on and off mild gross hematuria - very light - for 3 months, no pain TECHNIQUE: Grayscale and color Doppler imaging of the bilateral kidneys and urinary bladder: FINDINGS: EXAM MEASUREMENTS: Right Kidney: 11.4 x 6.0 x 5.6 cm Left Kidney: 12.2 x 4.5 x 6.3 cm Right Kidney: appearance of dilated pyramids, versus other etiology Left Kidney: No hydronephrosis or masses seen Bladder: probable diverticulum seen, multiple septations noted, slightly irregular wall, unknown etio logy There is no evidence for hydronephrosis at this point in time. Redemonstration of right parapelvic cy sts when compared with prior CT. Cortical medullary differentiation is maintained bilaterally. No nep hrolithiasis is seen. No solid masses are identified. The urinary bladder is anechoic and slightly irregular thickened wall and some thick septations. IMPRESSION: 1. No hydronephrosis or nephrolithiasis. 2. Slightly irregular thickened bladder wall with somewhat septated appearance. May represent chroni c changes from prostate cancer treatment and self-catheterization however infection or underlying arturo plasm is not excluded. Consider further evaluation with CT urogram or direct visualization. 3. Redemonstration of right simple parapelvic cysts. [facility], , 12/23/2023 10:39 AM
== END | disposition home or self-care (01) ==
LOC: RADUSWWP 08:21
PROVIDERS: ATTEND Urology
CPT/HCPCS: 76770